=== PATIENT | female | born 1955 | race African-American/Black ===

== ENCOUNTER 2018-10-03 20:37 | Emergency (ER) | payer OTHER ==
[2018-10-03] MEDS ORDERED: Ketorolac Tromethamine 30 MG/ML VIAL ONE (21:12)
[2018-10-03 21:42] LABS: Anion Gap 14 mmol/L (10-20); BUN (Urea Nitrogen) 16 mg/dL (9.8-20.1); Calc. Creatinine Clearance 0 mL/min (70-130); Carbon Dioxide 29 mmol/L (23-31); Chloride 103 mmol/L (98-107); Estimated GFR-MDRD 62; Glucose 136 mg/dL (80-115); Potassium 4.1 mmol/L (3.5-5.1); Sodium 142 mmol/L (136-145)
[2018-10-03 21:45] LABS: Calcium 12.4 mg/dL (7.8-10.44)
== END 2018-10-03 23:15 | disposition home or self-care (01) ==
LOC: NAV ERS 20:37
DX: G44.209 Tension-type headache, unspecified, not intractable (principal); E83.52 Hypercalcemia; I11.0 Hypertensive heart disease with heart failure; I50.9 Heart failure, unspecified; Z79.899 Other long term (current) drug therapy; Z79.82 Long term (current) use of aspirin
CPT/HCPCS: 36415; 80048; 83970; 93005; 96360; 96372; J1885